=== PATIENT | male | born 1960 | race Caucasian/White ===

== ENCOUNTER 2018-01-01 06:05 | Day surgery (SDC) | payer OTHER ==
[2018-01-01] MEDS: BUPIVACAINE 0.25% (MPF) 30 ML INJ INJ
[2018-01-01] MEDS: POLYMYXIN/BACITRACIN 1L IRRIG IRR
[~2018-01-01 06:05] MED LIST: SOD CHLORIDE 0.9% 1,000 ML IV
[2018-01-01] MEDS ORDERED: POLYMYXIN/BACITRACIN 1L IRRIG (06:57)
[2018-01-01] MEDS ORDERED: BUPIVACAINE 0.25% (MPF) 30 ML INJ (06:59)
[2018-01-01] MEDS ORDERED: MIDAZOLAM 1 MG/ML 2 ML INJ (07:46)
[2018-01-01] MEDS ORDERED: FENTAnyl 50 MCG/ML VIAL (07:46)
[2018-01-01] MEDS: CEFAZOLIN 2 GM/50 ML (PMX) 50 ML IVPB (07:59)
[2018-01-01] MEDS ORDERED: CEFAZOLIN 1 GM INJ (08:05)
[2018-01-01] MEDS ORDERED: PROPOFOL 20 ML (08:05)
[2018-01-01] MEDS ORDERED: SUCCINYLCHOLINE CHLORIDE 100 MG/5 ML SYG IV (08:05)
[2018-01-01] MEDS ORDERED: ROCURONIUM 50 MG INJ (08:05)
[2018-01-01] MEDS ORDERED: LIDOCAINE 2% (SDV) 5 ML INJ (08:05)
[2018-01-01] MEDS ORDERED: SUGAMMADEX SODIUM 200 MG/2 ML VIAL IV (08:06)
[2018-01-01] MEDS ORDERED: DIPHENHYDRAMINE 50 MG INJ IV (08:30)
[2018-01-01] MEDS ORDERED: FENTAnyl 50 MCG/ML VIAL IV ×2 (08:30)
[2018-01-01] MEDS ORDERED: MEPERIDINE 25 MG INJ IV (08:30)
[2018-01-01] MEDS ORDERED: HYDROmorphONE (0.2 MG/ML) 10ML SYG IV ×3 (08:30)
[2018-01-01] MEDS ORDERED: METOCLOPRAMIDE 10 MG INJ IV (08:30)
[2018-01-01] MEDS ORDERED: ALBUTEROL 0.083% (NEB) 2.5 MG/3 ML AMP HHN (08:30)
[2018-01-01] MEDS ORDERED: ROPIVACAINE 0.5 % 30 ML VIAL (08:40)
[2018-01-01] MEDS ORDERED: HYDROCODONE/APAP (5/325) TAB PO (09:00)
[2018-01-01] MEDS: ONDANSETRON 4 MG INJ IV (09:09)
== END 2018-01-01 11:02 | disposition home or self-care (01) ==
LOC: SDS 06:05
DX: K40.90 Unilateral inguinal hernia, without obstruction or gangrene, not specified as recurrent (principal); E11.9 Type 2 diabetes mellitus without complications; I10 Essential (primary) hypertension; J45.909 Unspecified asthma, uncomplicated; E78.5 Hyperlipidemia, unspecified
CPT/HCPCS: 49505; 82962